=== PATIENT | female | born 1930 | race Caucasian/White ===

== ENCOUNTER → 2017-01-23 | Outpatient (CLI) | payer OTHER, BC ==
[~2017-01-23] MED LIST: ACETAMINOPHEN325 M1 PO; ACTONEL OR; ALIGN4 MG PO; ALLEGRA-D 12 H1 EAC1 PO; ALLEGRA180 MG PO; ALPRAZOLAM 0.50.5 M1 PO; ALPRAZOLAM 0.50.5 MG PO; AMLODIPINE BESY10 MG PO; ATIVAN0.5 MG PO; BENICAR HCT 401 EAC1 PO; BENICAR40 MG PO; BENTYL20 MG PO; BENZONATATE200 MG PO; BONINE25 MG; BUTALB-ACETAMI1 EACH PO; BYSTOLIC 5 MG5 M1 PO; CALCIUM 600 +1 EAC1 PO; CARAFATE 1 GM TA1 G1 PO; CATAPRES-TTS 20.2 MG PO; CENTRUM SILVER1 EAC4 PO; CENTURY SENIOR1 EAC2 PO; CLONIDINE HCL0.2 M2 PO; CRANBERRY400 M1 PO; CRANBERRY400 MG PO; CRANBERRY450 M2 PO; DESONIDE 0.05%60 M1 TP; DOCUSATE SODIU100 MG PO; FENTANYL PA12 MCG/H1 TP; FINACEA50 GM TP; FIORICET 50-321 EACH; FIORINAL 50-321 EACH PO; FUROSEMIDE 20 M20 M1 PO; GLYCOLAX17 GM PO; GUAIFENESIN L1200 MG PO; K-DUR 20 MEQ T20 MEQ PO; KETOCONAZOLE60 GM TP; LEVAQUIN 500 M500 M2 PO; LEVOTHROID PO; LIPITOR20 MG PO; MECLIZINE 25 MG25 M1 PO; MEDROL4 MG; METROGEL-VAGINA70 GM TOP; MIRALAX255 GM PO; MOM PO; MOMETASONE FURO60 ML TP; MOTION RELIEF25 MG PO; MUCINEX600 MG PO; NEXIUM40 MG PO; NOLVADEX20 MG PO; NORVASC 5 MG TAB5 MG PO; NORVASC10 MG PO; NYSTATIN 1100000 U/M PO; NYSTATIN TOP; OPTIVAR6 ML; OPTIVE EYE DROP30 ML OP; PREDNISONE 20 M20 MG PO; PROAIR HFA8.5 GM INH; PROCTOCREAM-HC30 G1 RC; PROTONIX40 M2 PO; REMERON15 MG PO; RESTASIS1 EACH; RESTASIS1 EACH OP; SPIRIVA IH; SPIRIVA INH; SYMBICORT160 MCG/4. INH; SYNTHROID75 MCG PO; THEOPHYLLINE E100 MG PO; THEOPHYLLINE S200 M1 PO; TRAMADOL 50 MG50 MG PO; TRAVATAN 0.004%5 ML OP; TRAVATAN Z5 ML OPHTHALMIC; TRIAMCIN TOP; TRIBENZOR 40-11 EAC1 PO; VENTOLIN HFA INH8 GM INH; VITAMIN D400 UNI1 PO; WAL-FEX ALLERGY60 MG; ZOCOR 20 MG TAB20 M1 PO; ZOCOR40 MG PO; [UNRECOGNIZED DRUG - OTHER] INH; [UNRECOGNIZED DRUG - OTHER] TOP
== END ==
LOC: CAT 11:48
DX: J01.30 Acute sphenoidal sinusitis, unspecified (principal); J01.00 Acute maxillary sinusitis, unspecified

== ENCOUNTER → 2017-02-26 | Outpatient (CLI) | payer OTHER, BC | LOC: RAD 09:02 | DX: J44.1 Chronic obstructive pulmonary disease with (acute) exacerbation (principal) ==

== ENCOUNTER → 2017-07-22 | Outpatient (CLI) | payer OTHER, BC ==
[~2017-07-22] MED LIST changes: +IRBESARTAN300 MG PO; +NEURONTIN 300300 M1 PO; +VITAMIN D2000 UNIT PO; +XALATAN2.5 ML OPHTHALMIC; +ZOCOR20 MG PO; +ZOFRAN ODT4 MG PO
== END ==
LOC: RAD 11:59
DX: J44.1 Chronic obstructive pulmonary disease with (acute) exacerbation (principal); K44.9 Diaphragmatic hernia without obstruction or gangrene

== ENCOUNTER → 2017-08-09 | Outpatient (CLI) | payer OTHER, BC | LOC: RAD 08:50 | DX: K21.9 Gastro-esophageal reflux disease without esophagitis (principal); K20.9 Esophagitis, unspecified ==

== ENCOUNTER → 2017-08-12 | Outpatient (CLI) | payer OTHER, BC | LOC: RAD 07:27 → SPEECH 13:04 → RAD 13:04 | DX: K21.9 Gastro-esophageal reflux disease without esophagitis (principal); R13.12 Dysphagia, oropharyngeal phase ==

== ENCOUNTER → 2017-12-25 | Outpatient (CLI) | payer OTHER, BC ==
[~2017-12-25] MED LIST changes: -IRBESARTAN300 MG PO; -NEURONTIN 300300 M1 PO; -VITAMIN D2000 UNIT PO; -XALATAN2.5 ML OPHTHALMIC; -ZOCOR20 MG PO; -ZOFRAN ODT4 MG PO
== END ==
LOC: RAD 11:17
DX: K44.9 Diaphragmatic hernia without obstruction or gangrene (principal); J44.9 Chronic obstructive pulmonary disease, unspecified; I10 Essential (primary) hypertension; E78.5 Hyperlipidemia, unspecified; E03.9 Hypothyroidism, unspecified

== ENCOUNTER 2018-03-25 15:47 | Emergency (ER) | payer OTHER, BC ==
[~2018-03-25] VITALS: Ht 167.6 cm; Wt 81.7 kg
[2018-03-25] MEDS ORDERED: ZOCOR20 MG PO (16:23)
[2018-03-25] MEDS ORDERED: IRBESARTAN300 MG PO (16:23)
[2018-03-25] MEDS ORDERED: ZOFRAN ODT4 MG PO (16:24)
[2018-03-25] MEDS ORDERED: XALATAN2.5 ML OPHTHALMIC (16:25)
[2018-03-25] MEDS ORDERED: VITAMIN D2000 UNIT PO (16:27)
[2018-03-25] MEDS ORDERED: NEURONTIN 300300 M1 PO (16:28)
[2018-03-25] MEDS ORDERED: SPIRIVA INH (16:29)
== END 2018-03-25 18:00 | disposition home or self-care (01) ==
LOC: ER 15:47
DX: S00.03XA Contusion of scalp, initial encounter (principal); I10 Essential (primary) hypertension; G89.29 Other chronic pain; J45.909 Unspecified asthma, uncomplicated; M81.0 Age-related osteoporosis without current pathological fracture; G62.9 Polyneuropathy, unspecified; E03.9 Hypothyroidism, unspecified; E78.5 Hyperlipidemia, unspecified; Z85.3 Personal history of malignant neoplasm of breast; Z85.820 Personal history of malignant melanoma of skin; Z90.49 Acquired absence of other specified parts of digestive tract; Z88.5 Allergy status to narcotic agent; Z88.8 Allergy status to other drugs, medicaments and biological substances; Z91.030 Bee allergy status; Z91.041 Radiographic dye allergy status; W18.09XA Striking against other object with subsequent fall, initial encounter; Y93.01 Activity, walking, marching and hiking; Y92.89 Other specified places as the place of occurrence of the external cause; Y99.8 Other external cause status

== ENCOUNTER → 2018-05-08 | Outpatient (CLI) | payer OTHER, BC ==
[~2018-05-08] MED LIST changes: +IRBESARTAN300 MG PO; +NEURONTIN 300300 M1 PO; +VITAMIN D2000 UNIT PO; +XALATAN2.5 ML OPHTHALMIC; +ZOCOR20 MG PO; +ZOFRAN ODT4 MG PO
== END ==
LOC: RAD 11:01
DX: Z12.31 Encounter for screening mammogram for malignant neoplasm of breast (principal)

== ENCOUNTER 2018-07-14 15:38 | Inpatient (IN) | payer OTHER, BC ==
[~2018-07-14] VITALS: Ht 152.4 cm; Wt 72.6 kg
[2018-07-14 15:42] VITALS: BP 105/49
--- NOTE | 2018-07-14 16:20 | NUR ---
PT TO ED #9, ASSUMED PT CARE, INITIAL ASSESSMENT COMPLETE
[2018-07-14 16:44] LABS: HEMATOCRIT 45.9 % (37.0-47.0); HEMOGLOBIN 15.3 gm/dL (12.0-15.0); MCHC 33.4 g/dL (28.0-37.0); MCV 98.8 fL (80.0-100.0); RBC 4.64 mil/uL (4.20-5.00); RDW 14.5 % (10.5-14.5); WBC 7.3 thou/uL (4.0-11.0)
[2018-07-14 16:47] LABS: ANION GAP 11 mmol/L (7-16); BUN 32 mg/dL (7-18); CALCIUM 8.5 mg/dL (8.5-10.1); CHLORIDE 98 mmol/L (98-107); CO2 20 mmol/L (21-32); CREATININE 1.6 mg/dL (0.6-1.0); GLUCOSE 117 mg/dL (74-106); SODIUM 129 mmol/L (136-145)
[2018-07-14 16:57] LABS: TROPONIN-I <0.06 ng/mL (<0.06)
[2018-07-14 18:31] VITALS: BP 148/45
[2018-07-14 19:13] VITALS: BP 141/56
[2018-07-14 21:01] VITALS: BP 136/43
[2018-07-14] MEDS ORDERED: ANTIVERT25 MG PO (23:12)
[2018-07-14] MEDS ORDERED: UNICOMPLEX M TA1 TA1 PO (23:13)
[2018-07-14] MEDS ORDERED: MIRALAX17 GM PO (23:14)
[2018-07-15 05:31] LABS: HEMATOCRIT 36.2 % (37.0-47.0); MCH 33.4 pg (26.0-34.0); MCHC 33.6 g/dL (28.0-37.0); MCV 99.3 fL (80.0-100.0); RBC 3.65 mil/uL (4.20-5.00); RDW 14.3 % (10.5-14.5)
[2018-07-15 05:35] LABS: HEMOGLOBIN 12.2 gm/dL (12.0-15.0)
[2018-07-15 05:42] LABS: CALCIUM 7.7 mg/dL (8.5-10.1); CREATININE 1.2 mg/dL (0.6-1.0); POTASSIUM 4.4 mmol/L (3.5-5.1)
[2018-07-15 05:51] VITALS: BP 159/62
[2018-07-15 07:50] VITALS: BP 155/87
--- NOTE | 2018-07-15 08:15 | EKG ---
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 : 1930 Requested By: Mainor Garcias Order Number: [id number] MD: Bi Poe Measurements Intervals [place] Rate: 68 P: 38 AZ: 212 QRS: -37 QRSD: 84 T: 81 QT: 400 QTc: 426 Interpretive Statements Sinus arrhythmia Borderline prolonged [place] interval LVH with secondary repolarization abnormality Inferior infarct, old Poor R wave progression Compared to ECG 03/03/2013 14:53:49 Inferior Q waves are now present Electronically Signed On 07-15-2018 8:15:47 [employer] by Bi Poe [email or web address] <ELECTRONICALLY SIGNED> By: Bi Poe MD, [facility] 07/15/18 0815 1656 1656 Bi Poe MD, [facility] /EPI
--- NOTE | 2018-07-15 09:53 | NUR ---
ASSUMED CARE OF PT AT 0700. ASSESSMENT COMPLETED. A&O,X4. C/O COUGH AND NON CARDIAC CHEST PAIN FROM COUGHING, MEDS GIVEN ORDERED. ROOM AIR, NO SOA, COARSE/DIM LUNG SOUNDS. REGULAR HEART SOUNDS, NO EDEMA. HX HTN, MEDS GIVEN ORDERED. ACTIVE BOWEL SOUNDS, LAST BM BEORE ADMISSION. VOIDING PER BEDSIDE COMMODE. X1 ASSIST. SKIN INTACT, BRUISING NOTED ON THIGH AND BOTTOM FROM FALL. FALL PRECAUTIONS IN PLACE - NON SKID SLIPPERS, BED ALARM ON, CLOSE TO NURSE STATION, AND INSTRUCTED TO CALL BEFORE GETTING UP. WILL CONTINUE TO MONITOR.
[2018-07-15 11:40] VITALS: BP 137/44
--- NOTE | 2018-07-15 14:13 | NUR ---
ASSESSMENT-PT LIVES AT HOME WIITH HER IN A 4-PLEX. SHE USES A ROLLER WALKER TO GET AROUND. DOES THE COOKING, CLEANIONG, LAUNDRY AND DRIVES. PT GOES TO A [facility] WEEKLY AND THEY WORK HER OUT ON THE [place]. THEY HAVE 4 CHILDREN - 3 ARE HERE IN TOWN AND THEY HAVE A GRANDDTR THAT IS A RN. PT HAS GRAB BARS AND A SHOWER CHAIR SHE USES AT HOME. FOLLOWING TO ASSIST WITH DC PLANNING.
[2018-07-15 14:20] VITALS: BP 144/54
[2018-07-15 16:13] VITALS: BP 162/73
--- NOTE | 2018-07-15 18:21 | NUR ---
PT ON 2 L NC, DESAT TO 84% WITHOUT OXYGEN IN PLACE. COUGH STILL PRESENT. REPORTED SOME NAUSEA/DIZZINESS EARLIER, ZOFRAN GIVEN ORDERED. PT STATES SHE IS EASILY MOTION SICK AT HOME. AT BEDSIDE. NO OTHER CHANGE IN STATUS.
[2018-07-15 20:10] VITALS: BP 150/54
[2018-07-16 04:00] VITALS: BP 154/48
--- NOTE | 2018-07-16 18:30 | NUR ---
PT ASSESSED AT START OF SHIFT. STILL HAVING CONJESTED NONPRODUCTIVE COUGH. TAKING RT TX Q4HRS. EATING AND DRINKING FINE. UP TO THE BSC. DOES HAVE SOME ANXIETY FROM THE IV STEROIDS AND TAKES XANAX WHICH HELPS.
[2018-07-16 20:11] VITALS: BP 152/49
[2018-07-17] VITALS (8 sets, daily range): BP systolic 149–189; BP diastolic 52–81
--- NOTE | 2018-07-17 01:05 | NUR ---
PT REQUESTED FOR AND RECEIVED XANAX FOR ANXIETY.UP WITH SBA AND WALKER TO BSC.ISOLATION PRECAUTION MAINTAINED.CONT ON 2L/NC.PT HAVE CONGESTED COUGH,STATED THAT SHE IS FEELING MUCH BETTER NOW.C/O INSOMNIA,DIRECTOR DISTRIBUTION ON DUTY NOTIFIED,ORDER NOTED AND CARRIED OUT.PT SLEEPING ON HER BED AT THIS TIME.CALL LIGHT WITHIN REACH.
[2018-07-17 05:08] LABS: HEMATOCRIT 39.6 % (37.0-47.0); HEMOGLOBIN 13.3 gm/dL (12.0-15.0); MCHC 33.5 g/dL (28.0-37.0); MCV 101.5 fL (80.0-100.0); RBC 3.91 mil/uL (4.20-5.00); RDW 14.7 % (10.5-14.5); WBC 5.7 thou/uL (4.0-11.0)
[2018-07-17 05:24] LABS: CALCIUM 8.7 mg/dL (8.5-10.1); CREATININE 0.5 mg/dL (0.6-1.0); MAGNESIUM 2.2 mg/dL (1.8-2.4)
[2018-07-17 05:25] LABS: POTASSIUM 5.8 mmol/L (3.5-5.1)
--- NOTE | 2018-07-17 10:19 | NUR ---
ASSESMENT COMPLETED. VSS. A/O. DENIES PAIN. NO NOTED SOA. NO NV. PT AMBULATED IN HALLWAY WITH PHYSICAL THERAPY. PT RESTING IN BED AT THIS TIME. AT BEDSIDE. WILL CONT. TO MONITOR.
[2018-07-17] MEDS ORDERED: TAMIFLU30 MG PO (10:53)
[2018-07-17] MEDS ORDERED: PREDNISONE 20 M20 MG PO (10:54)
--- NOTE | 2018-07-17 11:23 | NUR ---
PT 91% ON RA. DC ORDERS RECEIVED. PT TO DC HOME WITH HH.
--- NOTE | 2018-07-17 13:55 | NUR ---
FAXED REFERRAL TO [facility] SPOKE WITH LYNNE IN ADM. SHE RECEIVED AND WILL REVIEW REFERRAL. NOTIFIED HER PT. IS DC READY TODAY. DCP WILL FOLLOW.
--- NOTE | 2018-07-17 14:17 | NUR ---
DC INSTRUCTIONS GIVEN TO PT AND BOTH VERBALIZED UNDERSTANDING. PT DCD HOME WITH HH.
== END 2018-07-17 14:50 | disposition home health service (06) | DRG 682 ==
LOC: ER 15:38 → EROBS 18:19 → 4E 18:19
PROVIDERS: Emergency Medicine; Nurse Practitioner Family; ADMIT Hospitalist
DX: N17.9 Acute kidney failure, unspecified (principal); J09.X1 Influenza due to identified novel influenza A virus with pneumonia; J96.01 Acute respiratory failure with hypoxia; I10 Essential (primary) hypertension; G89.29 Other chronic pain; M54.9 Dorsalgia, unspecified; J45.909 Unspecified asthma, uncomplicated; G62.9 Polyneuropathy, unspecified; E03.9 Hypothyroidism, unspecified; M19.90 Unspecified osteoarthritis, unspecified site; E78.5 Hyperlipidemia, unspecified; F32.9 Major depressive disorder, single episode, unspecified; F41.9 Anxiety disorder, unspecified; M81.0 Age-related osteoporosis without current pathological fracture; M62.84 Sarcopenia; K21.9 Gastro-esophageal reflux disease without esophagitis; D64.9 Anemia, unspecified; Z92.3 Personal history of irradiation; Z90.49 Acquired absence of other specified parts of digestive tract; Z90.710 Acquired absence of both cervix and uterus; Z87.11 Personal history of peptic ulcer disease; Z85.3 Personal history of malignant neoplasm of breast; Z98.42 Cataract extraction status, left eye; Z98.41 Cataract extraction status, right eye; Z88.8 Allergy status to other drugs, medicaments and biological substances; Z88.6 Allergy status to analgesic agent; Z91.041 Radiographic dye allergy status
CPT/HCPCS: 10084

== ENCOUNTER → 2019-05-11 | Outpatient (CLI) | payer OTHER, BC ==
[~2019-05-11] MED LIST changes: +ANTIVERT25 MG PO; +MIRALAX17 GM PO; +TAMIFLU30 MG PO; +UNICOMPLEX M TA1 TA1 PO
== END ==
LOC: RAD 11:14
DX: Z12.31 Encounter for screening mammogram for malignant neoplasm of breast (principal)

== ENCOUNTER → 2019-05-18 | Outpatient (CLI) | payer OTHER, BC | LOC: ULTRA 11:01 | DX: R92.2 Inconclusive mammogram (principal) ==

== ENCOUNTER → 2019-06-29 | Outpatient (CLI) | payer OTHER, BC | LOC: RAD 09:21 | DX: K44.9 Diaphragmatic hernia without obstruction or gangrene (principal); J98.4 Other disorders of lung; I11.9 Hypertensive heart disease without heart failure; J44.9 Chronic obstructive pulmonary disease, unspecified; M41.85 Other forms of scoliosis, thoracolumbar region ==

== ENCOUNTER → 2020-02-23 | Outpatient (CLI) | payer OTHER, BC | LOC: SJCVCIMAG 10:54 | PROVIDERS: ATTEND Internal Medicine Cardiovascular Disease | DX: I08.8 Other rheumatic multiple valve diseases (principal); I25.10 Atherosclerotic heart disease of native coronary artery without angina pectoris; I10 Essential (primary) hypertension; E78.5 Hyperlipidemia, unspecified; I25.2 Old myocardial infarction ==

== ENCOUNTER 2020-03-20 10:15 | Emergency (ER) | payer OTHER, BC ==
[~2020-03-20] VITALS: Ht 152.4 cm; Wt 72.6 kg
[2020-03-20 13:54] VITALS: BP 0/0
== END 2020-03-20 13:56 | disposition home or self-care (01) ==
LOC: ER 10:15
DX: T17.298A Other foreign object in pharynx causing other injury, initial encounter (principal); R13.10 Dysphagia, unspecified; I10 Essential (primary) hypertension; J45.909 Unspecified asthma, uncomplicated; E78.5 Hyperlipidemia, unspecified; E03.9 Hypothyroidism, unspecified; G89.29 Other chronic pain; M54.9 Dorsalgia, unspecified; Z90.49 Acquired absence of other specified parts of digestive tract; Z79.899 Other long term (current) drug therapy; Z88.8 Allergy status to other drugs, medicaments and biological substances; Z88.5 Allergy status to narcotic agent; Z91.030 Bee allergy status; Z91.041 Radiographic dye allergy status; X58.XXXA Exposure to other specified factors, initial encounter; Y93.89 Activity, other specified; Y92.89 Other specified places as the place of occurrence of the external cause; Y99.8 Other external cause status

== ENCOUNTER → 2020-04-11 | Outpatient (CLI) | payer OTHER, BC | LOC: RAD 14:23 | PROVIDERS: ATTEND Family Medicine | DX: S62.001A Unspecified fracture of navicular [scaphoid] bone of right wrist, initial encounter for closed fracture (principal); M19.031 Primary osteoarthritis, right wrist; M19.011 Primary osteoarthritis, right shoulder; X58.XXXA Exposure to other specified factors, initial encounter; Y93.89 Activity, other specified; Y92.89 Other specified places as the place of occurrence of the external cause; Y99.8 Other external cause status ==

== ENCOUNTER → 2020-05-02 | Outpatient (CLI) | payer OTHER, BC ==
[~2020-05-02] MED LIST changes: +CATAPRES0.2 M1 PO; +MECLIZINE HCL25 M1 PO; +NEURONTIN300 MG PO; +NORVASC5 M1 PO; +RESTASIS1 EACH OPHTHALMIC; +SLOW FE 160MG160 MG PO
== END ==
LOC: LAB 10:56
PROVIDERS: ATTEND Specialist
DX: Z01.812 Encounter for preprocedural laboratory examination (principal); Z20.828 Contact with and (suspected) exposure to other viral communicable diseases

== ENCOUNTER → 2020-05-04 | Outpatient (CLI) | payer OTHER, BC ==
[~2020-05-04] VITALS: Ht 152.4 cm; Wt 77.1 kg
--- NOTE | 2020-05-06 11:56 | P ---
[facility] [place] [address] PROCEDURE REPORT Name: ASHISH WILSON [id number] Admission: 05/04/20 Attend Phys: Sandip Vega Discharge: Date of : 30 Report #: [id number] THIS REPORT FOR: cc: Cristina Jin MD, Nora P. MD Mc[place]hinney, Christian C. MD ~ CC: Sandip Jin MD DATE OF SERVICE: 05/04/2020 PROCEDURE PERFORMED: Upper endoscopy with esophageal dilation. HISTORY OF PRESENT ILLNESS: The patient is an 89-year-old female with a history of dysphagia for several months. She actually underwent an upper GI in 08/2017 showing a large paraesophageal hernia with gastroesophageal reflux at that time, a few nonperistaltic tertiary contractions were noted in the distal esophagus. Plan is for EGD with dilation. DESCRIPTION OF PROCEDURE: The risks and benefits of the procedure were explained to the patient, those risks including but not limited to bleeding, perforation and the risk of sedation. She understood these risks and gave informed consent. Sedation was given using propofol per anesthesia. Next, using a standard Olympus upper endoscope, the scope was placed in the patient's mouth and advanced under direct vision through the esophagus, stomach and into the second portion of the duodenum. There is mild narrowing in the proximal esophagus, mid and distal esophagus appears normal. The gastric mucosa was normal. On retroflexion, a small to medium sized paraesophageal hernia was noted. Overall, the gastric antrum was normal. The pylorus was normal and patent. The duodenal bulb, first and second portion were all normal. The scope was then brought back up into the patient's stomach and a Savary guidewire was inserted through the scope, leaving the guidewire in place as the scope was then withdrawn. Next, a 48-British Savary dilation was then performed without difficulty. The wire and dilator removed. The scope was reintroduced into the patient's stomach. A mucosal tear was noted in the proximal esophagus. No significant bleeding was noted. At this point, the scope was then withdrawn and the procedure terminated. The patient tolerated the procedure well. IMPRESSION: 1. Narrowing in the proximal esophagus, status post dilation. 2. Paraesophageal hernia. 3. Otherwise, normal upper endoscopy. RECOMMENDATIONS: Observe the patient post-dilation. If dysphagia continues, may need to consider paraesophageal hernias etiology in that situation may need [address] [address] PROCEDURE REPORT Name: ASHISH WILSON Room #: REG [facility].#: [id number] Admission: 05/04/20 Attend Phys: Sandip Vega Discharge: Date of : 30 Report #: [id number] to consider surgical options. Thank you for allowing me to participate in her care. <ELECTRONICALLY SIGNED> By: Sandip Colorado MD 05/06/20 1156 1218 2131 Sandip Colorado MD /nt
== END | disposition home or self-care (01) ==
LOC: GI 09:19
PROVIDERS: ATTEND Specialist
DX: K22.2 Esophageal obstruction (principal); K44.9 Diaphragmatic hernia without obstruction or gangrene; I10 Essential (primary) hypertension; E78.5 Hyperlipidemia, unspecified; J43.9 Emphysema, unspecified; E03.9 Hypothyroidism, unspecified; G62.9 Polyneuropathy, unspecified; G43.909 Migraine, unspecified, not intractable, without status migrainosus; F32.9 Major depressive disorder, single episode, unspecified; F41.9 Anxiety disorder, unspecified; M81.0 Age-related osteoporosis without current pathological fracture; Z98.890 Other specified postprocedural states; Z79.899 Other long term (current) drug therapy; Z90.49 Acquired absence of other specified parts of digestive tract; Z90.710 Acquired absence of both cervix and uterus; Z85.828 Personal history of other malignant neoplasm of skin; Z85.3 Personal history of malignant neoplasm of breast
CPT/HCPCS: 62110; 62900

== ENCOUNTER → 2020-05-24 | Outpatient (CLI) | payer OTHER, BC | LOC: BC 10:57 | PROVIDERS: ATTEND Family Medicine | DX: Z12.31 Encounter for screening mammogram for malignant neoplasm of breast (principal) ==

== ENCOUNTER → 2020-08-30 | Outpatient (CLI) | payer OTHER, BC | LOC: RAD 11:36 | PROVIDERS: ATTEND Internal Medicine | DX: J44.9 Chronic obstructive pulmonary disease, unspecified (principal) ==

== ENCOUNTER 2020-10-26 08:21 | Inpatient (IN) | payer OTHER, BC ==
[~2020-10-26] VITALS: Ht 152.4 cm; Wt 77.1 kg
[2020-10-26 08:28] VITALS: BP 148/84
[2020-10-26 09:15] LABS: ANION GAP 11 mmol/L (7-16); BUN 17 mg/dL (7-18); CALCIUM 8.6 mg/dL (8.5-10.1); CHLORIDE 104 mmol/L (98-107); CO2 26 mmol/L (21-32); CREATININE 0.8 mg/dL (0.6-1.0); GLUCOSE 124 mg/dL (74-106); POTASSIUM 3.9 mmol/L (3.5-5.1); SODIUM 141 mmol/L (136-145)
--- NOTE | 2020-10-26 09:16 | EKG ---
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1930 Requested By: Venkata Diaz Order Number: [id number] MD: Gilberto Birmingham Measurements Intervals [place] Rate: 93 P: -36 UT: 209 QRS: -45 QRSD: 95 T: 64 QT: 367 QTc: 457 Interpretive Statements Sinus rhythm Borderline prolonged [place] interval Left ventricular hypertrophy Inferior infarct, old Anterior infarct, old Compared to ECG 07/14/2018 16:56:25 Sinus arrhythmia no longer present Early repolarization no longer present Poor R-wave progression no longer present Myocardial infarct finding still present Electronically Signed On 10-26-2020 9:16:19 CDT by Gilberto Birmingham [email or web address] <ELECTRONICALLY SIGNED> By: Gilberto Birmingham MD, [facility] 10/26/20915 6 6 Gilberto Birmingham MD, [facility] /[facility]
[2020-10-26 09:17] LABS: ABSOLUTE NEUTROPHILS 3.9 thou/uL (1.4-8.2); EOSINOPHILS 5.1 % (0.0-3.0); HEMATOCRIT 40.7 % (37.0-47.0); HEMOGLOBIN 13.3 gm/dL (12.0-15.0); LYMPHOCYTES 20.4 % (24.0-44.0); MCH 30.4 pg (26.0-34.0); MCHC 32.7 g/dL (28.0-37.0); MCV 92.9 fL (80.0-100.0); MONOCYTES 9.3 % (1.0-8.0); PLATELET COUNT 220 thou/uL (150-400); POLYS 64.2 % (36.0-66.0); RBC 4.38 mil/uL (4.20-5.00); RDW 15.1 % (10.5-14.5); WBC 6.1 thou/uL (4.0-11.0)
[2020-10-26 09:25] LABS: ALBUMIN 3.6 g/dL (3.4-5.0); LIPASE 84 U/L (73-393); SGOT 23 U/L (15-37); SGPT 24 U/L (30-65); TOTAL BILIRUBIN 0.4 mg/dL (0.2-1.0); TOTAL PROTEIN 6.4 g/dL (6.4-8.2); TROPONIN-I <0.06 ng/mL (<0.06)
[2020-10-26 10:25] LABS: URINE BILIRUBIN NEGATIVE (Negative); URINE BLOOD NEGATIVE (Negative); URINE CLARITY CLEAR; URINE COLOR YELLOW; URINE GLUCOSE-RANDOM* NEGATIVE (Negative); URINE KETONES NEGATIVE (Negative); URINE LEUKOCYTES-REFLEX TRACE (Negative); URINE NITRITE-REFLEX NEGATIVE (Negative); URINE PROTEIN (DIPSTICK) NEGATIVE (Negative); URINE SPECIFIC GRAVITY <= 1.005 (1.005-1.035); URINE UROBILINOGEN 0.2 E.U./dl (0.2-1.0)
[2020-10-26 13:48] VITALS: BP 138/62
[2020-10-26 14:17] VITALS: BP 157/66
[2020-10-26 14:41] VITALS: BP 163/86
--- NOTE | 2020-10-26 15:43 | EKG ---
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 : 1930 Requested By: Venkata Diaz Order Number: [id number] MD: Gilberto Birmingham Measurements Intervals [place] Rate: 86 P: 264 ID: [id number] QRS: -12 QRSD: 88 T: 116 QT: 402 QTc: 481 Interpretive Statements Sinus or ectopic atrial rhythm Prolonged ID interval Inferior infarct, old Lateral leads are also involved Compared to ECG 10/26/2020 08:27:28 Ectopic atrial rhythm now present Sinus rhythm no longer present Left ventricular hypertrophy no longer present Myocardial infarct finding still present Electronically Signed On 10-26-2020 15:42:59 CDT by Gilberto Birmingham [email or web address] <ELECTRONICALLY SIGNED> By: Gilberto Birmingham MD, FAC 10/26/20 1542 1243 1243 Gilberto Birmingham MD, [facility] /EPI
--- NOTE | 2020-10-26 16:08 | 2DMMODE ---
[facility] [place] [address] 2 D/M-MODE ECHOCARDIOGRAM Name: ASHISH WILSON WARD Room #: 203-P ADM IN [facility]#: [id number] Admission: 10/26/20 Attend Phys: Helder Gracia MD Discharge: Date of : 30 Report #: [id number] THIS REPORT FOR: cc: Cristina Jin MD, Nora P. MD Lammoglia, Francisco J. MD ~ APPROVED REPORT Study performed: 10/26/2020 14:40:02 EXAM: Comprehensive 2D, Doppler, and color-flow Echocardiogram Patient Location: In-Patient Room #: 203 Status: routine BSA: 1.74 HR: 92 bpm BP: 138/62 mmHg Other Information Study Quality: Adequate Risk Factors: Cardiac Risk Factors: HTN Indications Syncope Hypertension/HDD 2D Dimensions IVSd: 11.54 (7-11mm) LVOT Diam: 19.34 (18-24mm) LVDd: 38.29 mm PWd: 12.30 (7-11mm) LVDs: 29.54 (25-40mm) Left Atrium: 38.37 (27-40mm) Aortic Root: 28.40 mm LV Single Plane 4CH: 42.41 % LV Single Plane 2CH: 42.69 % Biplane EF: 43.6 % Volumes Left Atrial Volume (Systole) Single Plane 4CH: 59.68 mL Single Plane 2CH: 45.22 mL Biplane LA Volume: 58.00 mL LA ESV Index: 34.00 mL/m2 [facility] [place] [place] [address] [address] 2 D/M-MODE ECHOCARDIOGRAM Name: ASHIHS WILSON Room #: 203-P [facility] IN ..#: [id number] Admission: 10/26/20 Attend Phys: Helder Gracia MD Discharge: Date of : 30 Report #: [id number] Aortic Valve AoV Peak Jose R.: 1.68 m/s AO Peak Gr.: 11.30 mmHg LVOT Max P.51 mmHg LVOT Max V: 1.06 m/s HENRY Vmax: 1.86 cm2 Mitral Valve IVRT: 69.20 ms Pulmonary Valve PV Peak Jose R.: 1.01 m/s PV Peak Gr.: 4.12 mmHg [place] End Vmax: 1.81 m/s Pulmonary Vein P Vein S: 0.41 m/s P Vein A: 0.47 m/s P Vein D: 0.61 m/s P Vein A Dur.: 129.2 msec P Vein S/D Ratio: 0.67 Tricuspid Valve TR Peak Jose R.: 2.75 m/s RAP Estimate: 7.00 mmHg TR Peak Gr.: 30.35 mmHg RVSP: 37.00 mmHg Left Ventricle The left ventricle is normal size. There is normal LV segmental wall motion. Mild concentric left ventricular hypertrophy. Left ventricular systolic function is mildly decreased. Left ventricular systolic function is mildly decreased. LVEF is 40-45%. Severe diastolic dysfunction is present (restrictive filling). Right Ventricle The right ventricle is normal size. The right ventricular systolic function is normal. Atria The left atrium size is normal. The right atrium size is normal. Aortic Valve The aortic valve is normal in structure. No aortic regurgitation is present. There is no aortic valvular stenosis. Mitral Valve The mitral valve is normal in structure. Trace to mild mitral regurgitation. No evidence of mitral valve stenosis. Tricuspid Valve [facility] [place] [place] [address] [place] [address] 2 D/M-MODE ECHOCARDIOGRAM Name: ASHISH WILSON Room #: 203-P [facility] IN M.R.#: [id number] Admission: 10/26/20 Attend Phys: Helder Gracia MD Discharge: Date of : 30 Report #: [id number] The tricuspid valve is normal in structure. Trace to mild tricuspid regurgitation. PAP 37 mmHg. Pulmonic Valve The pulmonary valve is normal in structure. There is no pulmonic valvular regurgitation. Great Vessels The aortic root is normal in size. IVC is normal in size and collapses >50% with inspiration. Pericardium There is no pericardial effusion. There is no pleural effusion. <Conclusion> The left ventricle is normal size. Mild concentric left ventricular hypertrophy. Left ventricular systolic function is mildly decreased. LVEF is 40-45%. Severe diastolic dysfunction is present (restrictive filling). The right ventricle is normal size. The left atrium size is normal. The aortic valve is normal in structure. The mitral valve is normal in structure. Trace to mild mitral regurgitation. The tricuspid valve is normal in structure. Trace to mild tricuspid regurgitation. PAP 37 mmHg. The pulmonary valve is normal in structure. The aortic root is normal in size. There is no pericardial effusion. <ELECTRONICALLY SIGNED> By: Abdoul Cruz MD 10/26/20 1608 1608 1608 Abdoul Cruz MD /INF
[2020-10-26 20:15] VITALS: BP 196/92
[2020-10-27 00:05] VITALS: BP 192/80
[2020-10-27 04:45] VITALS: BP 198/94
[2020-10-27 05:18] LABS: HEMATOCRIT 40.4 % (37.0-47.0); HEMOGLOBIN 13.6 gm/dL (12.0-15.0); MCH 31.3 pg (26.0-34.0); MCHC 33.7 g/dL (28.0-37.0); MCV 92.9 fL (80.0-100.0); RBC 4.35 mil/uL (4.20-5.00); RDW 14.7 % (10.5-14.5); WBC 8.6 thou/uL (4.0-11.0)
[2020-10-27 05:28] LABS: CALCIUM 8.8 mg/dL (8.5-10.1); CREATININE 0.7 mg/dL (0.6-1.0); MAGNESIUM 2.2 mg/dL (1.8-2.4)
[2020-10-27 05:31] LABS: POTASSIUM 3.7 mmol/L (3.5-5.1)
[2020-10-27 08:19] VITALS: BP 139/50
--- NOTE | 2020-10-27 08:52 | EKG ---
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 Maternity: LALITHA : 1930 Requested By: Chase Barnard Order Number: [id number] MD: Bi Poe Measurements Intervals [place] Rate: 76 P: VT: QRS: -27 QRSD: 97 T: 100 QT: 427 QTc: 481 Interpretive Statements Uncertain rhythm, possibly sinus rhythm versus atrial flutter LVH with secondary repolarization abnormality Inferior infarct, old Poor R wave progression Compared to ECG 10/26/2020 12:43:59 Recommend repeat tracing in the absence of artifact Electronically Signed On 10-27-2020 8:51:46 CDT by Bi Poe [email or web address] <ELECTRONICALLY SIGNED> By: Bi Poe MD, [facility] 10/27/20 0851 0450 0450 Bi Poe MD, [facility] /EPI
[2020-10-27 11:53] VITALS: BP 194/77
[2020-10-27 15:06] VITALS: BP 198/92
[2020-10-27 20:07] VITALS: BP 187/62
[2020-10-28 00:13] VITALS: BP 159/74
[2020-10-28 04:27] VITALS: BP 134/79
[2020-10-28 04:57] LABS: HEMOGLOBIN 12.6 gm/dL (12.0-15.0); MCHC 33.3 g/dL (28.0-37.0); MCV 93.1 fL (80.0-100.0); RBC 4.08 mil/uL (4.20-5.00); WBC 8.2 thou/uL (4.0-11.0)
[2020-10-28 05:12] LABS: CALCIUM 8.7 mg/dL (8.5-10.1); CREATININE 0.9 mg/dL (0.6-1.0); POTASSIUM 3.7 mmol/L (3.5-5.1)
[2020-10-28 08:00] VITALS: BP 172/81
[2020-10-28 08:20] VITALS: BP 172/81
[2020-10-28 11:43] VITALS: BP 148/69
[2020-10-28 12:13] VITALS: BP 174/69
[2020-10-28] MEDS ORDERED: BENICAR20 MG PO (12:28)
[2020-10-28] MEDS ORDERED: NORVASC10 MG PO (12:28)
== END 2020-10-28 13:33 | disposition home or self-care (01) | DRG 206 ==
LOC: ER 08:21 → EROBS 14:06 → 2N 14:06
PROVIDERS: Emergency Medicine; Nurse Practitioner Family; ADMIT Hospitalist; ATTEND Hospitalist
DX: M94.0 Chondrocostal junction syndrome [Tietze] (principal); J96.10 Chronic respiratory failure, unspecified whether with hypoxia or hypercapnia; R65.10 Systemic inflammatory response syndrome (SIRS) of non-infectious origin without acute organ dysfunction; I16.0 Hypertensive urgency; I10 Essential (primary) hypertension; G89.29 Other chronic pain; M54.9 Dorsalgia, unspecified; J45.909 Unspecified asthma, uncomplicated; M81.0 Age-related osteoporosis without current pathological fracture; F32.9 Major depressive disorder, single episode, unspecified; F41.9 Anxiety disorder, unspecified; E78.5 Hyperlipidemia, unspecified; M19.90 Unspecified osteoarthritis, unspecified site; E03.9 Hypothyroidism, unspecified; G62.9 Polyneuropathy, unspecified; K44.9 Diaphragmatic hernia without obstruction or gangrene; J44.9 Chronic obstructive pulmonary disease, unspecified; F03.90 Unspecified dementia, unspecified severity, without behavioral disturbance, psychotic disturbance, mood disturbance, and anxiety; I25.10 Atherosclerotic heart disease of native coronary artery without angina pectoris; R53.81 Other malaise; D50.9 Iron deficiency anemia, unspecified; N32.81 Overactive bladder; Z79.899 Other long term (current) drug therapy; Z90.49 Acquired absence of other specified parts of digestive tract; Z91.041 Radiographic dye allergy status; Z90.710 Acquired absence of both cervix and uterus; Z98.42 Cataract extraction status, left eye; Z98.41 Cataract extraction status, right eye; Z85.3 Personal history of malignant neoplasm of breast; Z92.3 Personal history of irradiation; Z87.11 Personal history of peptic ulcer disease; Z88.8 Allergy status to other drugs, medicaments and biological substances; Z88.6 Allergy status to analgesic agent
CPT/HCPCS: 10081

== ENCOUNTER → 2020-11-22 | Outpatient (CLI) | payer OTHER, BC ==
[~2020-11-22] MED LIST changes: +BENICAR20 MG PO
== END ==
LOC: SJCVC 09:27
PROVIDERS: ATTEND Internal Medicine Cardiovascular Disease
DX: R94.31 Abnormal electrocardiogram [ECG] [EKG] (principal); I49.8 Other specified cardiac arrhythmias; I25.10 Atherosclerotic heart disease of native coronary artery without angina pectoris; I10 Essential (primary) hypertension; E78.00 Pure hypercholesterolemia, unspecified; J44.9 Chronic obstructive pulmonary disease, unspecified; K44.9 Diaphragmatic hernia without obstruction or gangrene; G62.9 Polyneuropathy, unspecified; D64.9 Anemia, unspecified; F41.9 Anxiety disorder, unspecified; G89.29 Other chronic pain; K21.9 Gastro-esophageal reflux disease without esophagitis; E78.5 Hyperlipidemia, unspecified; E03.9 Hypothyroidism, unspecified; G47.00 Insomnia, unspecified; G43.909 Migraine, unspecified, not intractable, without status migrainosus; Z79.899 Other long term (current) drug therapy; Z88.5 Allergy status to narcotic agent; Z88.8 Allergy status to other drugs, medicaments and biological substances